=== PATIENT | female | born 1980 | race Two or more races ===

== ENCOUNTER 2022-09-23 09:00 | Outpatient (AMB) | payer OTHER, SELFPAY ==
--- NOTE | 2022-09-23 07:43 | A.OFFVIS_ITS ---
Intake Intake Visit Reasons: kidney stones Intake Note: New Patient presents for history of kidney stones/renal cyst (previous patient of Dr. Moe) Urology Medications: none Blood Thinner: none Camp Coordinator Required: No Accompanied by: Self / Same As Patient Allergies No Known Allergies [No Known Allergies*] Allergy (Unverified 09/23/22 09:10) Medication List - Last Reconciled 09/23/22 by Rangel Goodrich MD etonogestrel (Nexplanon) subdermal metformin 500 mg PO BID rosuvastatin 5 mg PO DAILY sitagliptin phosphate (Januvia) 25 mg PO DAILY HPI HPI Comments History of Present Illness Details Nuzhat is a 41-year-old female who presents to the office as a new patient evaluation with history of kidney stones and kidney cysts. 09/23/22-- She was the patient of Dr. Manley. Review of notes indicate she was seen in october 2019 for a routine follow-up, indicates she has had history of Bosniak type 2 cyst the patient states she is doing well, denies episode of UTI or blood in the urine. She has has intermittent discomfort in the right flank area States that her blood pressure and blood sugar levels are stable. Currently on Januvia and metformin. Evaluation today UA: Blood: negative, leukocytes: negative. Plan: Discussed Evaluation with Renal US prior. Follow-up after 2 months. [facility] Medical History Diabetes mellitus type 2, controlled Hyperlipidemia Kidney stones Review of Systems Const All systems reviewed & are unremarkable except as noted in HPI and below Reports no additional complaints Eyes Reports no additional complaints ENT Reports no additional complaints Card Denies dyspnea Resp Denies cough and Denies dyspnea GI Reports no additional complaints Reports no additional complaints Musc Reports no additional complaints Skin/Breast Denies rash and Denies unusual bruising Neuro Reports no additional complaints Psych Reports no additional complaints Endo Reports no additional complaints Eb/Lymph Reports no additional complaints Aller/Immun Reports no additional complaints Physical Exam Const General: cooperative, healthy appearing and no acute distress Orientation/consciousness: patient oriented x3 HEENT Head: Yes normal to inspection, Yes normocephalic and Yes atraumatic Eyes Conjunctivae: conjunctivae normal Neck Neck: Yes normal visual inspection and Yes trachea midline Chest Chest palpation & inspection: normal inspection of the chest Resp Effort & Inspection: normal respiratory effort Cardio Rate: regular rate GI Inspection: Yes normal to inspection Skin General skin exam: no rashes or lesions noted Neuro General: patient oriented x3 Extrem General: No edema Psych Appearance: grossly normal Results AMB Urinalysis, Automated UA Leukoctes 0 Pippa/uL Last Edit by CE Info Systemscurtis Magdaleno on 09/23/22 09:20 UA Nitrite Negative Last Edit by Mirens Incmeghana on 09/23/22 09:20 UA Urobilinogen 0.2 mg/dL Last Edit by Mirens Incmeghana on 09/23/22 09:20 UA Protein 15 mg/dL Last Edit by Mirens Incmeghana on 09/23/22 09:20 UA pH 6.0 Last Edit by Mirens Incmeghana on 09/23/22 09:20 UA Blood 0 George/uL Last Edit by Mirens Incmeghana on 09/23/22 09:20 UA Specific [place] 1.030 Last Edit by Mirens Incmeghana on 09/23/22 09:20 UA Ketone Negative Last Edit by Mirens Incmeghana on 09/23/22 09:20 UA Bilirubin 0 mg/dL Last Edit by Mirens Incmeghana on 09/23/22 09:20 UA Glucose 0 mg/dL Last Edit by Mirens Incmeghana on 09/23/22 09:20 Results Reviewed Results Reviewed: Laboratory Last Values Urine pH (Auto) 6.0 09/23/22 09:11 Specific [place] (Auto) 1.030 09/23/22 09:11 Urine Protein (Auto) 15 mg/dL 09/23/22 09:11 Glucose (UA)(Auto) 0 mg/dL 09/23/22 09:11 Urine Ketones (Auto) Negative 09/23/22 09:11 Urine Blood (Auto) 0 George/uL 09/23/22 09:11 Urine Nitrite (Auto) Negative 09/23/22 09:11 Urine Bilirubin (Auto) 0 mg/dL 09/23/22 09:11 Urine Urobilinogen (Auto) 0.2 mg/dL 09/23/22 09:11 Leukocyte Esterase (Auto) 0 Pippa/uL 09/23/22 09:11 Assessment & Plan Assessment & Plan (1) Complex renal cyst: Code(s): N28.1 - Cyst of kidney, acquired (2) History of renal stone: Code(s): Z87.442 - Personal history of urinary calculi Plan Renal US prior was ordered. Follow-up after 2 months. Orders: Orders AMB Urinalysis Automated Today Z13.9 - Encounter for screening, unspecified Patient Instructions: The patient had an opportunity to ask questions regarding treatment plan. All questions were answered. Laboratory studies and physical exam results were discussed and reviewed in detail. No major barriers to understanding were identified. The patient expressed understanding and agreement with the above treatment plan. The patient is aware they should contact our office by phone for worsening of their current condition or the appearance of new symptoms. Compliance is encouraged with any medications and followup testing that is ordered. It is a privilege to be allowed the opportunity to participate in the urologic care of your patient. If you have any questions or concerns regarding treatment for the above conditions please do not hesitate to contact me. The office telephone contact is [phone]. This note is constructed in part using voice recognition software. While every effort has been made to ensure accuracy channel man errors may have been included. Yours sincerely, Rangel Goodrich MD Coding Level of Care Code New Pt Level 3 (47961) Diagnoses Complex renal cyst N28.1 History of renal stone Z87.442
== END 2022-09-23 09:37 | disposition home or self-care (01) ==
PROVIDERS: PCP Internal Medicine; Visit Provider Urology
DX: N28.1 Cyst of kidney, acquired (principal); Z87.442 Personal history of urinary calculi
CPT/HCPCS: 99203

== ENCOUNTER → 2022-09-23 09:00 | Outpatient (BNVA) | payer OTHER, SELFPAY | PROVIDERS: PCP Internal Medicine; Visit Provider Urology ==

== ENCOUNTER 2022-12-24 15:06 | Outpatient (REF) | payer OTHER, SELFPAY ==
--- NOTE | ~2022-12-24 | US_ITS ---
EXAMINATION: US RETROPERITONEAL LIMITED (RENAL ONLY) CLINICAL INFORMATION: Cyst of kidney, acquired. COMPARISON: CT abdomen and pelvis without and with contrast dated 11/05/2019. Renals only ultrasounds dated 10/01/2019 and 09/18/2018. TECHNIQUE: Real-time imaging of the kidneys. FINDINGS: RIGHT KIDNEY: 10.1 x 4.5 x 5.7 cm (SAG x AP x TRV). The kidney is normal in size, contour, and echogenicity. Renal cortical thickness is normal. No renal calculi or hydronephrosis. Mid pole cyst measuring 3.4 x 3.5 x 3.1 cm with septal calcification. Lower pole simple cyst measuring 3.3 x 2 2.4 x 2.5 cm. Upper pole cyst measuring 3.0 x 2.9 x 2.8 cm with septal calcification. These do not appear significantly changed in size when compared to CT 11/05/2019 allowing for differences in imaging technique. LEFT KIDNEY: 10.3 x 4.7 x 4.8 cm (SAG x AP x TRV). The kidney is normal in size, contour, and echogenicity. Renal cortical thickness is normal. No calculi or focal parenchymal lesions. No hydronephrosis. US/US renal BI IMPRESSION: Stable right renal cysts better characterized on previous CT scan as Bosniak 1 and Bosniak 2.
== END 2022-12-24 15:07 | disposition home or self-care (01) ==
LOC: HO.US 15:06
PROVIDERS: PCP Internal Medicine; Visit Provider Urology
DX: N28.1 Cyst of kidney, acquired (principal)
CPT/HCPCS: 76775

== ENCOUNTER 2023-01-07 13:03 | Outpatient (AMB) | payer OTHER, SELFPAY ==
--- NOTE | 2023-01-07 13:05 | MHC.OFFVIS ---
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 01/07/2023? She is followed today for US results. PMH DM. Currently on Januvia and metformin.?? She was last seen by me on 09/23/2022 for kidney stones. Discussed evaluation with Renal US prior at that time. Patient states that she has been doing well. She denies any abdominal pain and denies any visible blood I reviewed the retroperitoneum US results from 12/24/2022 revealed no calculi or focal parenchymal lesions. No hydronephrosis. Stable right renal cysts better characterized on previous CT scan as Bosniak 1 and Bosniak 2. I had a lengthy discussion with the patient regarding different categorized kidney cysts and reassured that bosniak 1 and 2 are benign. I have reviewed the renal US results revealed 3 cysts in the right kidney which needs the criteria bosniak 1 and bosniak 2 with benign features. 01/07/2023: Plan: To continue to monitor kidneys Follow-up in 1 year. [facility] Medical History (Updated 09/23/22 @ 09:57 by Martha Lea) Diabetes mellitus type 2, controlled Hyperlipidemia Kidney stones Surgical History (Updated 01/07/23 @ 13:06 by PATRIC Yip) No pertinent past surgical history Family History (Updated 01/07/23 @ 13:06 by PATRIC Yip) Father No problems noted. Mother No problems noted. Social History (Updated 01/07/23 @ 13:06 by PATRIC Yip) Alcohol intake: never Patient Tobacco Use Status: Never used Tobacco Review of Systems Const All systems reviewed & are unremarkable except as noted in HPI and below Reports no additional complaints Eyes Reports no additional complaints ENT Reports no additional complaints Card Denies dyspnea Resp Denies cough and Denies dyspnea GI Reports no additional complaints Reports no additional complaints Musc Reports no additional complaints Skin/Breast Denies rash and Denies unusual bruising Neuro Reports no additional complaints Psych Reports no additional complaints Endo Reports no additional complaints Eb/Lymph Reports no additional complaints Aller/Immun Reports no additional complaints Results AMB Urinalysis, Automated UA Leukoctes 70 Pippa/uL Last Edit by PATRIC Yip on 01/07/23 13:20 1+ Diann Mcgill 01/07/23 13:20 UA Nitrite Negative Last Edit by Diann Mcgill [facility] on 01/07/23 13:20 UA Urobilinogen 0.2 mg/dL Last Edit by Diann Mcgill [facility] on 01/07/23 13:20 UA Protein 30 mg/dL Last Edit by Diann Mcgill [facility] on 01/07/23 13:20 1+ Diann Mcgill 01/07/23 13:20 UA pH 6.0 Last Edit by Diann Mcgill [place] on 01/07/23 13:20 UA Blood 200 George/uL Last Edit by Diann Mcgill [facility] on 01/07/23 13:20 3+ Diann Mcgill 01/07/23 13:20 UA Specific [place] 1.030 Last Edit by Diann Mcgill [place] on 01/07/23 13:20 UA Ketone Positive Last Edit by Diann Mcgill [facility] on 01/07/23 13:20 5 mg/dL Diann Mcgill 01/07/23 13:20 UA Bilirubin 0 mg/dL Last Edit by Diann Mcgill [facility] on 01/07/23 13:20 UA Glucose 0 mg/dL Last Edit by Diann Mcgill [facility] on 01/07/23 13:20 Results Reviewed Results Reviewed: Laboratory Last Values Urine pH (Auto) 6.0 01/07/23 13:19 Specific [place] (Auto) 1.030 01/07/23 13:19 Urine Protein (Auto) 30 mg/dL 01/07/23 13:19 Glucose (UA)(Auto) 0 mg/dL 01/07/23 13:19 Urine Ketones (Auto) Positive 01/07/23 13:19 Urine Blood (Auto) 200 George/uL 01/07/23 13:19 Urine Nitrite (Auto) Negative 01/07/23 13:19 Urine Bilirubin (Auto) 0 mg/dL 01/07/23 13:19 Urine Urobilinogen (Auto) 0.2 mg/dL 01/07/23 13:19 Leukocyte Esterase (Auto) 70 Pippa/uL 01/07/23 13:19 Assessment & Plan Assessment & Plan (1) Complex renal cyst: Code(s): N28.1 - Cyst of kidney, acquired (2) History of renal stone: Code(s): Z87.442 - Personal history of urinary calculi Plan To continue to monitor. Follow-up in 1 year. Orders: Orders US renal BI 10 Months N28.1 - Cyst of kidney, acquired, Z87.442 - Personal history of urinary calculi AMB Urinalysis Automated 01/07/23 Z13.9 - Encounter for screening, unspecified Patient Instructions: The patient had an opportunity to ask questions regarding treatment plan. All questions were answered. Imaging, Laboratory studies and physical exam results were discussed and reviewed in detail. No major barriers to understanding were identified. The patient expressed understanding and agreement with the above treatment plan. The patient is aware they should contact our office by phone for worsening of their current condition or the appearance of new symptoms. Compliance is encouraged with any medications and followup testing that is ordered. It is a privilege to be allowed the opportunity to participate in the urologic care of your patient. If you have any questions or concerns regarding treatment for the above conditions please do not hesitate to contact me. The office telephone contact is [phone]. This note is constructed in part using voice recognition software. While every effort has been made to ensure accuracy advertising sales agent errors may have been included. Yours sincerely, Rangel Goodrich MD Coding Level of Care Code Est Pt Level 3 (21639) Diagnoses Complex renal cyst N28.1 History of renal stone Z87.442
== END 2023-01-07 13:43 | disposition home or self-care (01) ==
PROVIDERS: PCP Internal Medicine; Visit Provider Urology
DX: N28.1 Cyst of kidney, acquired (principal); Z87.442 Personal history of urinary calculi
CPT/HCPCS: 99213

== ENCOUNTER → 2023-01-07 13:03 | Outpatient (BNVA) | payer OTHER, SELFPAY | PROVIDERS: PCP Internal Medicine; Visit Provider Urology | DX: N28.1 Cyst of kidney, acquired (principal); Z87.442 Personal history of urinary calculi | CPT/HCPCS: 81003 ==

== ENCOUNTER 2024-01-20 10:30 | Outpatient (REF) | payer OTHER, SELFPAY ==
--- NOTE | ~2024-01-20 | US_ITS ---
EXAMINATION: US RETROPERITONEAL LIMITED (RENAL ONLY) CLINICAL INFORMATION: Cyst of kidney, acquired. COMPARISON: Renal ultrasound 12/24/2022 and 10/01/2019. CT abdomen and pelvis 11/05/2019. X-ray abdomen KUB 08/14/2014. TECHNIQUE: Real-time imaging of the kidneys. FINDINGS: RIGHT KIDNEY: 10.3 x 4.0 x 4.7 cm (SAG x AP x TRV). The kidney is normal in size, contour, and echogenicity. Renal cortical thickness is normal. No renal calculi or hydronephrosis. There are scattered renal cortical calcifications, likely vascular, which do not meet formal ultrasound criteria for calculi. At the upper pole, a 3.4 cm mildly complex cyst with fine septation is redemonstrated. At the lower pole, a 3.2 cm benign, simple cyst is redemonstrated. These are likely benign and benign and require no imaging follow-up. LEFT KIDNEY: 10.3 x 4.6 x 4.5 cm (SAG x AP x TRV). The kidney is normal in size, contour, and echogenicity. Renal cortical thickness is normal. No calculi or focal parenchymal lesions. No hydronephrosis. US/US renal BI IMPRESSION: Unremarkable examination. Electronically signed by: Wayne Hanley MD 01/22/2024 10:33 PM KELLY WOODS
== END 2024-01-20 10:31 | disposition home or self-care (01) ==
LOC: HO.US 10:30
PROVIDERS: PCP Internal Medicine; Visit Provider Urology
DX: N28.1 Cyst of kidney, acquired (principal); Z87.442 Personal history of urinary calculi
CPT/HCPCS: 76775

== ENCOUNTER 2024-03-05 15:24 | Outpatient (AMB) | payer OTHER, SELFPAY ==
--- NOTE | 2024-03-05 15:24 | A.OFFVIS_ITS ---
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 I have reviewed with the patient that complex cyst is stable with thin septation meeting criteria of benign. No further follow-up imaging indicated. The patient states in the past she has had kidney stones. I have discussed the importance of hydrating and discussed adding lemon to her diet for example, 4 oz of lemon concentrate in a 24 hour. Will follow-up on a p.r.n. basis Review of chart: 01/07/2023? She is followed today for US results. PMH DM. Currently on Januvia and metformin.?? She was last seen by me on 09/23/2022 for kidney stones. Discussed evaluation with Renal US prior at that time. Patient states that she has been doing well. She denies any abdominal pain and denies any visible blood I reviewed the retroperitoneum US results from 12/24/2022 revealed no calculi or focal parenchymal lesions. No hydronephrosis. Stable right renal cysts better characterized on previous CT scan as Bosniak 1 and Bosniak 2. I had a lengthy discussion with the patient regarding different categorized kidney cysts and reassured that bosniak 1 and 2 are benign. I have reviewed the renal US results revealed 3 cysts in the right kidney which needs the criteria bosniak 1 and bosniak 2 with benign features. [facility] Medical History Diabetes mellitus type 2, controlled Hyperlipidemia Kidney stones Surgical History No pertinent past surgical history Family History Father No problems noted. Mother No problems noted. Social History Alcohol intake: never Patient Tobacco Use Status: Never used Tobacco Review of Systems Const All systems reviewed & are unremarkable except as noted in HPI and below Reports no additional complaints Eyes Reports no additional complaints ENT Reports no additional complaints Card Reports no additional complaints Resp Reports no additional complaints GI Reports no additional complaints Reports as per HPI Musc Reports no additional complaints Skin/Breast Reports system reviewed and no additional complaints, except as documented Neuro Reports no additional complaints Psych Reports no additional complaints Endo Reports no additional complaints Eb/Lymph Reports no additional complaints Aller/Immun Reports no additional complaints Telehealth Telehealth Telehealth Platform: [facility] Location of provider rendering services: practice address Location of patient: address on file Patient Identification confirmed using: Name, : Yes Telehealth method: voice only Patient verbally consented to treatment: Yes Patient verbally consented to billing insurance company: Yes Patient informed of any privacy concerns related to visit: Yes Minutes spent on Phone/Video with Pt.: 14 Results Reviewed Results Reviewed: Date of Service: 01/20/24 Procedure(s): US renal BI Accession Number(s): [id number] cc: Rangel Goodrich MD; Fabiola Fajardo MD~ EXAMINATION: US RETROPERITONEAL LIMITED (RENAL ONLY) CLINICAL INFORMATION: Cyst of kidney, acquired. COMPARISON: Renal ultrasound 12/24/2022 and 10/01/2019. CT abdomen and pelvis 11/05/2019. X-ray abdomen KUB 08/14/2014. TECHNIQUE: Real-time imaging of the kidneys. FINDINGS: RIGHT KIDNEY: 10.3 x 4.0 x 4.7 cm (SAG x AP x TRV). The kidney is normal in size, contour, and echogenicity. Renal cortical thickness is normal. No renal calculi or hydronephrosis. There are scattered renal cortical calcifications, likely vascular, which do not meet formal ultrasound criteria for calculi. At the upper pole, a 3.4 cm mildly complex cyst with fine septation is redemonstrated. At the lower pole, a 3.2 cm benign, simple cyst is redemonstrated. These are likely benign and benign and require no imaging follow-up. LEFT KIDNEY: 10.3 x 4.6 x 4.5 cm (SAG x AP x TRV). The kidney is normal in size, contour, and echogenicity. Renal cortical thickness is normal. No calculi or focal parenchymal lesions. No hydronephrosis. IMPRESSION: Unremarkable examination. Assessment & Plan Assessment & Plan (1) Complex renal cyst: Code(s): N28.1 - Cyst of kidney, acquired Category: Medical (2) History of renal stone: Code(s): Z87.442 - Personal history of urinary calculi Category: Medical Plan Follow-up p.r.n. Patient Instructions: The patient had an opportunity to ask questions regarding treatment plan. The patient expressed understanding and agreement with the above treatment plan. The patient is aware they should contact our office by phone for worsening of their current condition or the appearance of new symptoms. Compliance is encouraged with any medications and followup testing that is ordered. It is a privilege to be allowed the opportunity to participate in the urologic care of your patient. If you have any questions or concerns regarding treatment for the above conditions please do not hesitate to contact me. The office telephone contact is [phone]. This note is constructed in part using voice recognition software. While every effort has been made to ensure accuracy technical applications specialist errors may have been included. Yours sincerely, Rangel Goodrich MD Coding Level of Care Code Tele Est Pt Level 3 (17174) Diagnoses Complex renal cyst N28.1 History of renal stone Z87.442
== END 2024-03-05 15:34 | disposition home or self-care (01) ==
LOC: HO.HUSH 15:24
PROVIDERS: PCP Internal Medicine; Visit Provider Urology
DX: N28.1 Cyst of kidney, acquired (principal); Z87.442 Personal history of urinary calculi
CPT/HCPCS: 99213

== ENCOUNTER 2024-12-12 14:32 | Emergency (ER) | payer OTHER, SELFPAY ==
--- NOTE | 2024-12-12 | ECG_ITS ---
Test Reason : CHEST PAIN Blood Pressure : */* mmHG Vent. Rate : 86 BPM Atrial Rate : 86 BPM P-R Int : 128 ms QRS Dur : 62 ms QT Int : 350 ms P-R-T Axes : 72 50 61 degrees QTcB Int : 418 ms Normal sinus rhythm Normal ECG No previous ECGs available Referred By: Generic ED Physician Electronically Signed By: MAURICIO WELSH
--- NOTE | ~2024-12-12 | XR_ITS ---
EXAMINATION: XR CHEST CLINICAL INFORMATION: CP COMPARISON: None available. TECHNIQUE: 2 views of the chest were obtained. FINDINGS: The cardiac, hilar, and mediastinal contours are normal. The lungs are clear bilaterally. There is no pneumothorax or pleural effusion. There is no focal osseous or soft tissue abnormality. XR/XR chest 2V IMPRESSION: Normal chest. Electronically signed by: Antoine Winkler MD 12/12/2024 04:10 PM EDT
[2024-12-12 15:28] VITALS: BP 145/63; PULSE 93; RESP 14; TEMP 36.6; O2SAT 100; BMI 23.5
--- NOTE | 2024-12-12 15:32 | ED.CHESTPAIN ---
[facility] - Chest Pain General Chief Complaint: Chest Pain Stated Complaint: sharp heart pain Time Seen by Provider: 12/12/24 18:37 History of Present Illness ED Provider: Dr. Salvador [facility] narrative: This is a 44-year-old female history of hyperlipidemia diabetes on control presented hospital today for evaluation of sudden onset of left-sided chest pain. Patient stated that she has did have these episode in the past. It is pleuritic in nature. These are usually self-limiting. She denies any shortness of breath. She does have history of protein S deficiency. Denies any recent surgery denies any hemoptysis denies any leg edema. Patient stated the chest pain has resided at this time. Related Data Home Medications ?Medication ?Instructions ?Recorded ?Confirmed etonogestrel 68 mg subdermal subdermal 09/23/22 03/05/24 implant (Nexplanon) metformin 500 mg tablet 500 mg PO BID 09/23/22 03/05/24 rosuvastatin 5 mg tablet 5 mg PO DAILY 09/23/22 03/05/24 sitagliptin phosphate 25 mg tablet 25 mg PO DAILY 09/23/22 03/05/24 (Januvia) Allergies Allergy/AdvReac Type Severity Reaction Status Date / Time No Known Allergies (No Known Allergy Verified 12/12/24 15:30 Allergies*) Review of Systems Review of Systems: Pertinent review of systems as mentioned in [facility]. All other system otherwise negative. [facility] Past Medical History [facility] Narrative: Medical history as mentioned in [facility] Medical History Diabetes mellitus type 2, controlled Hyperlipidemia Kidney stones Surgical History No pertinent past surgical history Family History Family History Father No problems noted. Mother No problems noted. Social History Social History Alcohol intake: never Patient Tobacco Use Status: Never used Tobacco Smoked in Last 30 Days: No Advance Directives: No Advance Directives Information Provided: Yes Do you have a plan to hurt others: No Plan Patient : No Physical Exam Exam: Exam: General: Pleasant, no distress, interacting appropriately Head: Normacephalic, atraumatic ENT: oral mucosa moist, neck supple, no tracheal deviation Cardiovascular: regular rate, regular rhythm, no murmurs, rubbing, gallops Respiratory: CTAB, no wheeze, rales, rhonchi Extremities: No limb pain or swelling, no calf tenderness Neurological: Awake and alert, no facial droop noted Skin: Warm and dry Psychiatric: Appropriate mood and thoughts Vital Signs: Vital Signs: Last Vital Signs Temp 98 F 12/12/24 15:28 Pulse 79 12/12/24 18:37 Resp 17 12/12/24 18:37 BP 105/59 L 12/12/24 18:37 Pulse Ox 99 12/12/24 18:37 O2 Del Method Room Air 12/12/24 18:37 BMI result Body Mass Index 23.5 Course Course Course Narrative: This is an RME: Additional HPI, ROS, PE not included below will be deferred to primary provider. RME assessment and note performed by: Latrice Biggs PA-C This is a 44-year-old female who presents emergency department with complaints of chest pain that started at 1:00 a.m. this afternoon. She was walking around her house and suddenly had this symptom. Pain has now resolved. Plan: Labs, EKG, CXR further ER eval needed Medications Administered Discontinued Medications Generic Name Dose Route Start Last Admin Trade Name Freq PRN Reason Stop Dose Admin Acetaminophen 975 mg 12/12/24 18:51 12/12/24 19:22 Acetaminophen 325 Mg Tablet PO 12/12/24 18:52 975 mg ONCE ONE Administration Medical Decision Making Medical Decision Making [facility] Narrative: This is a 44-year-old female history of hyperlipidemia, diabetes, on control, protein S deficiency presented hospital today for evaluation of left-sided chest pain. Chest x-ray is normal. Troponin is negative. Patient has a heart score of 2. Lab work did not show any signs of significant abnormality. We will plan to obtain a D-dimer to rule out PE. Patient is low risk. Patient's D-dimer is negative here. Patient is low risk on the heart score. We will plan to discharge patient with a close outpatient follow up. She agrees and understands this plan all questions were addressed Differential Diagnosis Differential Diagnoses: The differential diagnosis associated with the presentation includes Chest pain, PE, ACS, CAD Lab Data [facility] Lab Attestation statement: I reviewed the patient's lab results. 12/12/24 16:55 12/12/24 16:55 Labs: Lab Results 12/12/24 12/12/24 Range/Units 16:55 19:25 WBC 10.9 H (4.8-10.8) X10*3/uL RBC 4.50 (4.20-5.50) X10*6/uL Hgb 12.9 (12.0-16.0) g/dl Hct 37.3 (37.0-47.0) % MCV 82.9 (80.0-98.0) fL MCH 28.7 (27.0-33.0) pg MCHC 34.6 (31.0-35.0) g/dl RDW 13.5 (11.0-16.0) % Plt Count 291 (160-400) X10*3/uL MPV 10.6 (9.4-12.3) fL Immature Gran % (Auto) 0.3 (0.0-0.4) % Neut % (Auto) 68.0 (45-73) % Lymph % (Auto) 23.5 (20-40) % [place] % (Auto) 6.7 (2-11) % Eos % (Auto) 1.2 (0-4) % Baso % (Auto) 0.3 (0-2) % Lymph # (Auto) 2.6 (1.2-4.9) X10*3/uL [place] # (Auto) 0.7 (0.1-1.2) X10*3/uL Eos # (Auto) 0.1 (0.0-0.4) X10*3/uL Baso # (Auto) 0.0 (0.0-0.2) X10*3/uL Abs Immat Gran (auto) 0.03 (0.00-0.03) X10*3/uL Absolute Neuts (auto) 7.4 (2.0-8.3) x10*3/uL Absolute Nucleated RBC 0.000 (0.0-0.012) X10*3/uL Nucleated RBC % (auto) 0.0 (0.0-0.2) /100WBC D-Dimer High Sensitivty < 150 NG/ML Sodium 140 (135-145) mmol/L Potassium 4.0 (3.3-5.1) mmol/L Chloride 108 (96-108) mmol/L Carbon Dioxide 26 (22-29) mmol/L Anion Gap 10 L (12-20) BUN 11 (9-16) mg/dL Creatinine 0.73 (0.5-1.4) mg/dL Estim Creat Clear Calc 71.4 Estimated GFR > 60 Random Glucose 89 (60-115) mg/dL Calcium 8.9 (8.4-10.2) mg/dL Total Bilirubin 0.4 (0.0-1.0) mg/dL AST 18 (5-31) U/L ALT 14 (0-31) U/L Alkaline Phosphatase 67 (39-117) U/L Troponin I High Sens < 2.7 (<3.5-17.0) ng/L Total Protein 7.2 (6.5-8.0) g/dL Albumin 4.4 (3.5-5.0) g/dL Beta HCG, Quant < 2 mIU/mL COVID-19 (EFFIE) Negative (Negative) COVID-19 Clin Com See Note Influenza Type A (KRAIG) Negative (Negative) Influenza Type B (KRAIG) Negative (Negative) Influenza A & B Note See Note Independent Interpretation I performed an independent interpretation of an: EKG and Plain X-Ray Radiology Impression Discussion of test interpretation with radiology: I have reviewed the radiologist's reading. Discharge Plan Discharge Clinical Impression: Atypical chest pain Patient Disposition: Home, Self-Care Instructions: Noncardiac Chest Pain (ED) Additional Instructions: Ask about stress test or a holter monitor Prescriptions: No Action Januvia 25 mg tablet 25 mg PO DAILY rosuvastatin 5 mg tablet 5 mg PO DAILY metformin 500 mg tablet 500 mg PO BID Nexplanon 68 mg implant subdermal Print Language: Portuguese
[2024-12-12 17:02] LABS: MANUAL DIFF FLAG NO
[2024-12-12 17:04] LABS: Hematocrit 37.3 % (37.0-47.0); Hemoglobin 12.9 g/dl (12.0-16.0); Imm Gran Abs Auto 0.03 X10*3/uL (0.00-0.03); Imm Gran Pct Auto 0.3 % (0.0-0.4); Lymphocytes Absolute Auto 2.6 X10*3/uL (1.2-4.9); Mean Corpuscular HGB Conc 34.6 g/dl (31.0-35.0); Mean Corpuscular Hemoglobin 28.7 pg (27.0-33.0); Mean Corpuscular Volume 82.9 fL (80.0-98.0); NRBC Abs Auto 0.000 X10*3/uL (0.0-0.012); NRBC Pct Auto 0.0 /100WBC (0.0-0.2); Platelet Count 291 X10*3/uL (160-400); Red Blood Count 4.50 X10*6/uL (4.20-5.50); White Blood Count 10.9 X10*3/uL (4.8-10.8)
[2024-12-12 17:17] LABS: Alanine Aminotransferase 14 U/L (0-31); Albumin Level 4.4 g/dL (3.5-5.0); Alkaline Phosphatase 67 U/L (39-117); Anion Gap 10 (12-20); Aspartate Amino Transferase 18 U/L (5-31); Blood Urea Nitrogen 11 mg/dL (9-16); Calcium 8.9 mg/dL (8.4-10.2); Carbon Dioxide 26 mmol/L (22-29); Chloride 108 mmol/L (96-108); Creatinine Clr Calc Pharmacy 71.4; Estimated Glomerular Filt Rate > 60; Potassium 4.0 mmol/L (3.3-5.1); Sodium 140 mmol/L (135-145); Total Protein 7.2 g/dL (6.5-8.0)
[2024-12-12 17:26] LABS: Troponin-I High Sensitivity < 2.7 ng/L (<3.5-17.0)
--- NOTE | 2024-12-12 17:28 | MHC.EDTECH ---
pt refused to getting blood drawn
--- OUTSIDE RECORDS SUMMARY | 2024-12-12 17:34 | XMS_ITS ---
Author Name [facility] Organization Unknown Care Team Organization Name Specialty Phone Email Start Date End Da te [facility] Fabiola Fajardo Primary Care 01/19/2022 4
--- OUTSIDE RECORDS SUMMARY | 2024-12-12 17:34 | XMS_ITS | Clinical Summary ---
Author Organization [facility] [address] [place] [address] [place] [phone] Phone Care Team Providers Care Clinic Cma Name Role Phone Fabiola Fajardo MD Primary Care Provider [phone] Allergies Active Allergy Reactions Criticality Noted Date Comments Levonorgestrel-Ethinyl Estrad 2016 Simvastatin Pain 03/23/2018 Medications cholecalciferol (VITAMIN D-3) 50 mcg (2,000 unit) tablet Take 1 tablet (2,000 Units total) by mouth 1 (one) time each day. Active hydrOXYzine HCL (ATARAX) 25 mg tablet Take 1 tablet (25 mg total) by mouth 3 (three) times a day if needed. 3 Active mometasone (NASONEX) 50 mcg/actuation nasal spray Administer 2 sprays into affected nostril(s). 1 Active triamcinolone (KENALOG) 0.1 % cream Apply topically areas affected by eczema for no more than 2 weeks 2 Active valACYclovir (VALTREX) 500 mg tablet Take 1 tablet (500 mg total) by mouth 1 (one) time each day. 1 Active rosuvastatin (CRESTOR) 5 mg tablet TAKE 1 TABLET BY MOUTH DAILY 90 tablet 1 5 Active metFORMIN (GLUCOPHAGE) 500 mg tablet Take 1 tablet (500 mg total) by mouth 2 (two) times a day with meals. 180 tablet 2 5 Active SITagliptin phosphate (Januvia) 25 mg tablet Take 1 tablet (25 mg total) by mouth 1 (one) time each day. 90 tablet 1 5 Active cetirizine (ZyrTEC) 10 mg tablet TAKE 1 TABLET BY MOUTH EVERY DAY 90 tablet 1 5 Active Active Problems Problem Noted Date Diagnosed Date Protein S deficiency ([facility] V24) 07/27/2024 Nephrolithiasis 12/13/2023 Overview (12/13/2023): 07/12/2014 renal US: L renal calculus, simple R renal cysts. Onychomycosis 03/28/2023 Vitamin D deficiency 06/08/2022 Bilateral thumb pain 05/03/2019 Eczema 01/31/2018 Hyperlipidemia 05/11/2017 Genital herpes simplex 01/27/2017 Overview (12/13/2023): Used to take daily Valtrex, now only as needed for outbreak (as of 06/02/2020) Seasonal allergic rhinitis 01/27/2017 Type 2 diabetes mellitus wit hout complications ([facility] V24, [facility] V28) 01/03/2017 Encounters Date Type Department Care Team Description 10/17/2024 1:30 PM EDT Office Visit Adult Medicine [address] [phone] Fabiola Fajardo MD Pain of right upper extremity (Primary Dx); Type 2 diabetes mellitus without complication, without long-term current use of insulin ([facility] V24, [facility] V28); Hyperlipidemia, unspecified hyperlipidemia type from Last 3 Months Immunizations Immunization Administration Dates Next Due H1N1 Inj Preservative Free 01/28/2009 Hepatitis B (Recombivax HB-D ialysis) 18yo and older 05/01/2008,11/30/2007,10/18/2007 Influenza Quadravalent, MDCK , 0.5ml, preservative free (Flucelvax) 6mo and older 12/02/2022,01/01/2022,01/24/2018 Influenza Quadravalent, MDCK , 0.5ml, with preservative (Flucelvax) 6mo and older 11/15/2020,01/27/2017 Influenza trivalent, 0.5mL, preservative free (Fluarix; FluLaval; Fluzone) ages 6mo and older (Afluria) 3 years and older 11/29/2023,01/28/2009 MMR, measles mumps and rubel la Live (Priorix; M-M-R II) 12mo and older 05/05/2011 Pneumococcal polysaccharide 23 valent (Pneumovax 23) 2yo and older 09/20/2017,09/20/2017 Td Tetanus diptheria (Tdvax) 7yo and older 01/30 Tdap Tetanus diptheria acell ular pertussis (Boostrix; Adacel) 7yo and older 05/13/2016 Surgical History Surgery Date Site/Laterality Comments CERVICAL BIOPSY W/ LOOP ELEC TRODE EXCISION pt had a total of 3 leep LITHOTRIPSY : 2-3 sessions COLONOSCOPY 09/2023 Medical History Medical History Date Comments Type 2 diabetes mellitus wit hout complications ([facility] V24, [facility] V28) 01/03/2017 Hyperlipidemia 05/11/2017 Genital herpes simplex 01/27/2017 Seasonal allergic rhinitis 01/27/2017 Nephrolithiasis : 07/12/2014 renal US: L renal calculus, simple R renal cysts. Eczema 01/31/2018 Onychomycosis 03/28/2023 Family History Medical History Relation Name Comments Diabetes Father hypertension, h ypercholesterolemia Diabetes Mother hypertension Stroke Mother Diabetes Sister Breast cancer Neg Hx Colon cancer Neg Hx Ovarian cancer Neg Hx Relation Name Status Comments Father Mother Sister Social History Tobacco Use Types Packs/Day Years Used Date Smoking Tobacco: Never Smokeless Tobacco: Never Tobacco Cessation:Counseling Given: Not Answered Alcohol Use Standard Drinks/Week Comments Yes 0 (1 standard drink = 0.6 oz pur e alcohol) Housing Instability Answer Date Recorde d Are you worried that in the next 2 months you may not have stable housing? No 04/03/2024 Financial Risk Answer Date Recorded How hard is it for you to pa y for the very basics like food, housing, medical care, and air conditioning / heating? Not very hard 04/03/2024 Transportation Answer Date Recorded Has the lack of transportati on kept you from meetings, work, or from getting things needed for daily living? No Has the lack of transportati on kept you from medical appointments or from getting medications? No 04/03/2024 Food Risk Answer Date Recorded Within the past 12 months we worried whether our food would run out before we got money to buy more. Never true 04/03/2024 Within the past 12 months th e food we bought just didn't last and we didn't have money to get more. Never true 04/03/2024 Living Situation Answer Date Recorded What is your living situation? Unrecognized valu e 04/03/2024 Comments Unknown Sex and Gender Information Value Date Recorded Sex Assigned at Not on file Legal Sex Female 1:34 PM EST Gender Identity Not on file Sexual Orientation Not on file Obstetrics History Last Filed Vital Signs Vital Sign Reading Time Taken Comments Blood Pressure 112/66 10/17/2024 1:28 PM EDT Pulse 90 10/17/2024 1:28 PM EDT Temperature 36.2 C (97.1 F) 10/17/2024 1:28 PM EDT Respiratory Rate 14 10/17/2024 1:28 PM EDT Oxygen Saturation 98% 10/17/2024 1:28 PM EDT Inhaled Oxygen Concentration - - Weight 55 kg (121 lb 4.8 oz) 10/17/2024 1:28 PM EDT Height 149.9 cm (4' 11 ) 10/17/2024 1:28 PM EDT Body Mass Index 24.5 10/17/2024 1:28 PM EDT Plan of Treatment Upcoming Encounters Date Type Department Care Team (Late st Contact Info) Description 12/13/2024 1:30 PM EDT Consult Orthopedic Surgery - [place] [address] [phone] Ora eKlley MD [address] [address] 12/20/2024 8:30 AM EDT Office Visit Adult Medicine [address] [phone] Michelle Hassan PA [address] [place], [place] Health Maintenance Due Date Last Done Comments Cervical Cancer Screening: Pap Smear 12/12/1999 Pneumococcal Vaccine: Pediatrics (0 to 5 Years) and At-Risk Patients (6 to 49 Years) (2 of 2 - PCV) 09/20/2018 09/20/2017, 09/20/2017 Influenza Vaccine (#1) 2024 , 12/02/2022, 01/01/2022, Additional history exists Diabetes: Annual Retina Eye Exam 03/29/2025 03/29/2024 Diabetes: Annual Foot Exam 04/03/2025 04/03/2024, Social Influencers of Health Screening 04/03/2025 04/03/2024 Diabetes: Blood Sugar Control Test (HGBA1C) 05/20/2025 11/20/2024, 07/31/2024, 03/30/2024, Additional history exists Diabetes: Annual Urine Albumin-Creatinine Ratio (uACR) 11/20/2025 11/20/2024, 03/30/2024 Diabetes: Annual GFR (Glomerular Filtration Rate) 11/20/2025 11/20/2024, 07/31/2024, 03/30/2024, Additional history exists DTaP,Tdap,and Td Vaccines (3 - Td or Tdap) 05/13/2026 05/13/2016, 01/30/2013 Breast Cancer Screening 11/02/2026 11/03/19, 05/03/2024, 04/02/2024 Cholesterol Screening (Lipid Panel) 11/20/2029 11/20/2024, 03/30/2024, 07/26/2023 Colorectal Cancer Screening: Colonoscopy 10/02/2033 10/03/2023 RSV Immunization Adult Patients (1 - 1-dose 75+ series) 2053 Hepatitis B Vaccines Completed 05/01/2008, 11/30/2007, 10/18/2007 MMR Vaccines Aged Out 05/05/2011 No longer eligi ble based on patient's age to complete this topic COVID-19 Vaccine Discontinued 02/10/2021, , 04/11/2020 Depression Screening Completed 04/03/2024 HIB Vaccines Aged Out No longer eligi ble based on patient's age to complete this topic HIV Screening Discontinued HPV Vaccines Aged Out No longer eligi ble based on patient's age to complete this topic Hepatitis A Vaccines Aged Out No long er eligible based on patient's age to complete this topic Hepatitis C Screening Discontinued IPV Vaccines Aged Out No longer eligi ble based on patient's age to complete this topic Meningococcal ACWY Vaccine Aged Out N o longer eligible based on patient's age to complete this topic Meningococcal B Vaccine Aged Out No l onger eligible based on patient's age to complete this topic RSV Immunization Patients Under 20 months Aged Out No longer eligible based on patient's age to complete this topic Varicella Vaccines Aged Out No longer eligible based on patient's age to complete this topic Procedures Procedure Name Priority Date/Time Associated Diagnosis Comments COMPREHENSIVE METABOLIC PANEL Routine 11/20/2024 8:18 AM EDT Type 2 diabetes mellitus without complication, without long-term current use of insulin ([facility] V24, [facility] V28) HEMOGLOBIN A1C Routine 11/20/2024 8:18 AM EDT Type 2 diabetes mellitus without complication, without long-term current use of insulin ([facility] V24, [facility] V28) LIPID PANEL WITH REFLEX TO DIRECT LDL Routine 11/20/2024 8:18 AM EDT Hyperlipidemia, unspecified hyperlipidemia type MICROALBUMIN CREATININE URINE RATIO Routine 11/20/2024 8:18 AM EDT Type 2 diabetes mellitus without complication, without long-term current use of insulin ([facility] V24, [facility] V28) EXTERNAL MAMMOGRAM REPORT 11/02/2024 EXTERNAL ULTRASOUND REPORT 11/02/2024 from Last 3 Months Results * (ABNORMAL) Lipid panel with reflex to direct LDL (11/20/2024 8:18 AM EDT) Cholesterol 185 0 - 200 mg/dL LAB CHEMISTRY METHOD 11/20/2024 10:37 AM EDT [facility] Triglycerides 64 0 - 150 mg/dL LAB CHEMISTRY METHOD 11/20/2024 10:37 AM EDT [facility] HDL 50 >=40 mg/dL LAB CHEMISTRY METHOD 11/20/2024 10:37 AM EDT [facility] LDL Calculated 122(H) 0 - 100 mg/dL LAB CHEMISTRY METHOD 11/20/2024 10:37 AM EDT [facility] Comment:Estimated LDL Calcul ated using equation: Total cholesterol - HDL cholesterol - (Triglycerides/5) VLDL Cholesterol Cruz 12.8 mg/dL LAB CHEMISTRY METHOD 11/20/2024 10:37 AM EDT [facility] Non HDL Chol. (LDL+VLDL) 135 <145 mg/dL LAB CHEMISTRY METHOD 11/20/2024 10:37 AM EDT [facility] Chol/HDL Ratio 3.7 0.0 - 4.4 LAB CHEMISTRY METHOD 11/20/2024 10:37 AM EDT [facility] Blood Venous blood specimen / Unknown Venipuncture / Unknown 11/20/2024 8:18 AM EDT 11/20/2024 8:18 AM EDT us Fabiola Fajardo MD LAB BLOOD ORDERABLES Final Resul t [facility] [address] [place] [address], * Microalbumin creatinine urine ratio (11/20/2024 8:18 AM EDT) Creatinine, Urine 203.0 mg/dL LAB CHEMISTRY METHOD 11/20/2024 11:29 AM EDT [facility] Microalb, Ur 11.3 0.0 - 29.0 mg/L LAB CHEMISTRY METHOD 11/20/2024 11:29 AM EDT [facility] Microalb/Creat Ratio 6 <30 mg/g creat LAB CHEMISTRY METHOD 11/20/2024 11:29 AM EDT [facility] Urine Urine specimen obtained by clean catch procedure / Unknown Non-blood Collection / Unknown 11/20/2024 8:18 AM EDT 11/20/2024 8:18 AM EDT us Fabiola Fajardo MD LAB URINE ORDERABLES Final Resul t Performing Organization Address [facility] de Phone Number [facility] [address] [place] [address], [place] [phone] * (ABNORMAL) Hemoglobin A1c (11/20/2024 8:18 AM EDT) Hemoglobin A1C 6.5(H) <6.5 % LAB CHEMISTRY METHOD 11/20/2024 11:02 AM EDT [facility] Mean Bld Glu Estim. 140 mg/dL LAB CHEMISTRY METHOD 11/20/2024 11:02 AM EDT [facility] Blood Venous blood specimen / Unknown Venipuncture / Unknown 11/20/2024 8:18 AM EDT 11/20/2024 8:18 AM EDT us Fabiola Fajardo MD LAB BLOOD ORDERABLES Final Resul t Performing Organization Address [facility]/ZIP Co de Phone Number [facility] [address] [place] [address], [place] [phone] * Comprehensive metabolic panel (11/20/2024 8:18 AM EDT) Sodium 138 133 - 145 mmol/L LAB CHEMISTRY METHOD 11/20/2024 10:37 AM EDT [facility] Potassium 3.9 3.5 - 5.5 mmol/L LAB CHEMISTRY METHOD 11/20/2024 10:37 AM EDT [facility] Chloride 108 96 - 110 mmol/L LAB CHEMISTRY METHOD 11/20/2024 10:37 AM EDT [facility] CO2 25 21 - 32 mmol/L LAB CHEMISTRY METHOD 11/20/2024 10:37 AM EDT [facility] Anion Gap 5 3 - 11 LAB CHEMISTRY METHOD 11/20/2024 10:37 AM [facility] Glucose 98 70 - 100 mg/dL LAB CHEMISTRY METHOD 11/20/2024 10:37 AM [facility] BUN 11 5 - 25 mg/dL LAB CHEMISTRY METHOD 11/20/2024 10:37 AM [facility] Creatinine 0.75 0.50 - 1.10 mg/dL LAB CHEMISTRY METHOD 11/20/2024 10:37 AM [facility] eGFR 100 >=60 mL/min/1. 73m2 LAB CHEMISTRY METHOD 11/20/2024 10:37 AM [facility] Comment:Calculation based on the Chronic Kidney Disease Epidemiology Collaboration (CKD-EPI) equation refit without adjustment for race. BUN/Creatinine Ratio 14.7 LAB CHEMISTRY METHOD 11/20/2024 10:37 AM [facility] Calcium 8.7 8.5 - 10.5 mg/dL LAB CHEMISTRY METHOD 11/20/2024 10:37 AM [facility] AST (SGOT) 15 10 - 42 unit/L LAB CHEMISTRY METHOD 11/20/2024 10:37 AM [facility] ALT (SGPT) 14 10 - 60 unit/L LAB CHEMISTRY METHOD 11/20/2024 10:37 AM [facility] Alkaline Phosphatase 67 42 - 121 unit/L LAB CHEMISTRY METHOD 11/20/2024 10:37 AM [facility] Total Protein 6.9 6.0 - 8.0 g/dL LAB CHEMISTRY METHOD 11/20/2024 10:37 AM [facility] Albumin 3.8 3.2 - 5.0 g/dL LAB CHEMISTRY METHOD 11/20/2024 10:37 AM [facility] Total Bilirubin 0.6 0.0 - 1.4 mg/dL LAB CHEMISTRY METHOD 11/20/2024 10:37 AM EDT [facility] Blood Venous blood specimen / Unknown Venipuncture / Unknown 11/20/2024 8:18 AM EDT 11/20/2024 8:18 AM EDT us Fabiola Fajardo MD LAB BLOOD ORDERABLES Final Resul t [facility] [address] [place] [address], [place] [phone] * External Ultrasound Report (11/02/2024) Anatomical Region Laterality Modality Ultrasound us Provider [facility] US PROCEDURES Final Result * External Mammogram Report (11/02/2024) Anatomical Region Laterality Modality Mammography us Provider [facility] BI PROCEDURES Final Result from Last 3 Months Insurance [employer] Care Teams Clinic Cma Relationship Specialty Start Date End Date Fabiola Fajardo MD [address] [place], [place] PCP - General Internal Medicine 08/14/20
[2024-12-12 17:51] LABS: COVID-19 Test Negative (Negative); IDNOW Serial# 152EDE1D; IDNOW Serial# 16C4AD1C; Influenza B2 Negative (Negative)
[2024-12-12 18:37] VITALS: BP 105/59; PULSE 79; RESP 17; O2SAT 99
[2024-12-12 20:05] LABS: D Dimer High Sensitivity < 150 NG/ML
[2024-12-12 20:14] VITALS: BP 105/59; PULSE 79; RESP 17; TEMP 36.7; O2SAT 99
== END 2024-12-12 20:16 | disposition home or self-care (01) ==
PROVIDERS: Physician Assistant Medical; Emergency Provider Student in an Organized Health Care Education/Training Program; PCP Internal Medicine
DX: R07.89 Other chest pain (principal); E11.9 Type 2 diabetes mellitus without complications; E78.5 Hyperlipidemia, unspecified; Z79.899 Other long term (current) drug therapy; Z03.818 Encounter for observation for suspected exposure to other biological agents ruled out
CPT/HCPCS: 36415; 71046; 80053; 84484; 84702; 85025; 85379; 87502; 87635; 93005; 99283; 99285

== ENCOUNTER → 2024-12-12 14:40 | Outpatient (BNV) | payer OTHER, SELFPAY | PROVIDERS: Emergency Provider Student in an Organized Health Care Education/Training Program; PCP Internal Medicine; Visit Provider Internal Medicine | DX: R07.89 Other chest pain (principal) | CPT/HCPCS: 93010 ==

== ENCOUNTER → 2024-12-12 15:33 | Outpatient (BNV) | payer OTHER, SELFPAY | PROVIDERS: PCP Internal Medicine; Visit Provider Radiology Diagnostic Radiology | DX: R07.89 Other chest pain (principal) | CPT/HCPCS: 71046 ==